=== PATIENT | female | born 1965 | race Hispanic/Latino ===

== ENCOUNTER 2023-02-11 13:52 | Outpatient (CLI) | payer OTHER | END 2023-02-11 13:53 | disposition home or self-care (01) | LOC: DTY/OP 13:52 | PROVIDERS: ATTEND Surgery | DX: E66.01 Morbid (severe) obesity due to excess calories (principal) | CPT/HCPCS: 97802 ==

== ENCOUNTER 2023-03-04 10:12 | Outpatient (CLI) | payer OTHER | END 2023-03-04 10:13 | disposition home or self-care (01) | LOC: DTY/OP 10:12 | PROVIDERS: ATTEND Surgery | DX: E66.01 Morbid (severe) obesity due to excess calories (principal); Z71.3 Dietary counseling and surveillance | CPT/HCPCS: 97802 ==